=== PATIENT | female | born 1980 | race Caucasian/White ===

== ENCOUNTER 2017-01-02 23:49 | Inpatient (IN) | payer BC, MEDICAID ==
[~2017-01-02] VITALS: Ht 172.7 cm; Wt 81.6 kg
[~2017-01-02 23:49] MED LIST: CYCL-36 PO; FIORIC PO; KETO10 PO
[2017-01-03] VITALS (76 sets, daily range): BP systolic 90–127; BP diastolic 49–95; PULSE 66–108; RESP 16–20; TEMP 97.8–99.5; O2SAT 98–100
--- NOTE | 2017-01-03 00:32 | PD ---
HPI Chief Complaint LOF Date Seen: Jan 03, 2017 Time Seen: 00:15 Travel History International Travel<30 Days: No Contact w/Intl Traveler<30Days: No Known Affected Area: No History of Present Illness HPI 36y/o , IUP at 39.1 records reviewed and PNC complicated by: 1. AMA 2. h/o HPV 3. remote h/o chlamydia Patient presents c/o large gush of clear fluid at 10:45pm last night. She reports she continues to leak large amounts of fluid. She reports she had been having irregular ctx prior and has had some increase in the intensity of ctx since her water broke. She reports good FM. She denies any VB. She denies any aggravating factors and reports she had just gotten into bed when she felt the gush. She has no other complaints today. Para: 2 : 3 Miscarriage: 0 : 0 History Past Medical History Narrative Medical migraine CAUSEY shingles Obstetric History Obstetric History FT x2 h/o abnl PAP and chlamydia Past Surgical History Narrative Surgical Cholecystectomy LEEP Appendectomy Family History Narrative Family History HTN Social History Alcohol Use: No Tobacco Use: No Substance Abuse: No Allergies-Medications (Allergen,Severity, Reaction): Coded Allergies: Morphine (Verified Allergy, Severe, ITCHING, HEADACHE, NAUSEA, 11/07/13) Home Meds Reported Medications Ketorolac Tromethamine (Toradol)10 Mg Tab10 Mg PO Q6 #20 TAB *DO NOT EXCEED 40 MG/DAY* *DURATION IS NOT TO EXCEED 5 DAYS* 11/08/13 Cyclobenzaprine Hcl (Flexeril)10 Mg Tab10 Mg PO Q8 PRN (MUSCLE SPASM) #20 TAB 11/08/13 Acetamin/Butalbital/Caffeine (Fioricet Tab)1 Tab Tab1 Tab PO Q6H PRN (HEADACHE) 11/07/13 Review of Systems Except as stated in HPI: all other systems reviewed are Neg Physical Exam VSS AF Narrative GENERAL: Well-nourished, well-developed patient. SKIN: Warm and dry. HEAD: Normocephalic and atraumatic. EYES: No scleral icterus. No injection or drainage. ENT: No nasal drainage noted. Mucous membranes pink. Airway patent. NECK: Supple, trachea midline. No JVD. CARDIOVASCULAR: Regular rate and rhythm without murmurs, gallops, or rubs. RESPIRATORY: Breath sounds equal bilaterally. No accessory muscle use. BREASTS: Bilateral exam showed no masses , no retractions, no nipple discharge. ABDOMEN/GI: Abdomen soft, non-tender, bowel sounds present, no rebound, no guarding Gravid Fundal Height: appropriate for gestational age GENITOURINARY: External Genitalia: intact and normal in appearance BUS glands: [nl] Cervix: [no cervical/vaginal masses noted Dilatation: [2] Effacement: [50] Station: [-2 to -3] Presentation: [cephalic], confirmed by limited bedside US Membranes: [grossly ruptured] Uterine Contractions: [irregular ctx pattern] FHT's: Category: [1] Baseline: [120s] Reactive: [yes] Variability: [moderate] Decels: [-] EXTREMITIES: No cyanosis or edema. BACK: Nontender without obvious deformity. No CVA tenderness. NEUROLOGICAL: Awake and alert. Motor and sensory grossly within normal limits. Five out of 5 muscle strength in all muscle groups. Normal speech. SKIN: warm/dry, no rashes noted Data Data Vital Signs Reviewed: Yes [facility] Medical Record Reviewed: Yes Plan A/P: 36y/o 1. IUP at 39.1 2. PROM: patient with grossly ruptured membranes, some ctx noted, expressed interest to enter labor spontaneously, will admit to primary OB 3. GBS neg 4. wellbeing: reassuring testing, continue EFM 5. h/o migraine CAUSEY 6. h/o shingles Diagnosis Diagnosis: Primary Impression: Premature rupture of membranes Condition: Marguerite Carmona MD Jan 03, 2017 00:32
[2017-01-03] MEDS ORDERED: PRENTAB85 PO (00:38)
[2017-01-03] MEDS ORDERED: LACTATED RINGER'S 1000 ML INJ 1,000 ML IV SCH (00:43)
[2017-01-03] MEDS ORDERED: LACTATED RINGER'S 1000 ML INJ 1,000 ML IV PRN (00:43)
[2017-01-03] MEDS ORDERED: LIDOCAINE HCL 1% 50 ML VIAL I-DERMAL PRN (00:45)
[2017-01-03] MEDS ORDERED: CITRIC ACID-SODIUM CITRATE LIQ 30 ML UDC PO SCH (00:45)
[2017-01-03] MEDS ORDERED: OXYTOCIN 30 UNITS-500ML PREMIX 500 ML IV ONE ×2 (00:45→19:30)
[2017-01-03] MEDS ORDERED: LIDOCAINE HCL 1% 50 ML VIAL INFIL PRN (00:45)
[2017-01-03] MEDS ORDERED: MINERAL OIL 10 ML VIAL TOPICAL PRN (00:45)
[2017-01-03] MEDS ORDERED: SODIUM CHLORID 0.9% 500 ML INJ 500 ML IV PRN (00:45)
[2017-01-03] MEDS ORDERED: SODIUM CHLOR 0.9% 1000 ML INJ 1,000 ML IV PRN (01:03)
[2017-01-03] MEDS ORDERED: OXYTOCIN 30 UNITS-500ML PREMIX 500 ML IV SCH (01:15)
[2017-01-03 01:46] LABS: BLOOD, URINE NEG (NEG); GLUCOSE,URINE NEG (NEG); KETONE, URINE NEG (NEG); NITRITE,URINE NEG (NEG); PH, URINE 6.5 (5.0-8.5); SQUAMOUS EPITHELIAL CELL URINE 4 /hpf (0-5); URINE COLOR LIGHT-YELLOW (YELLW/STRAW)
[2017-01-03 01:48] LABS: COMMENT (UR) CULT NOT INDICATED; CULTURE IF INDICATED CULT NOT INDICATED
[2017-01-03 03:26] LABS: AUTOMATED NEUTROPHIL # 8.7 TH/MM3 (1.8-7.7); BASOPHIL # 0.1 TH/MM3 (0-0.2); BASOPHIL % 0.4 % (0.0-2.0); EOSINOPHIL # 0.1 TH/MM3 (0-0.4); EOSINOPHIL % 1.2 % (0.0-4.0); HEMATOCRIT 33.2 % (35.0-46.0); HEMO FLAGS DIFF FINAL; LYMPHOCYTE # 1.6 TH/MM3 (1.0-4.8); MEAN CELL VOLUME 91.8 FL (80.0-100.0); MEAN CORPUSCULAR HEMOGLOBIN 29.8 PG (27.0-34.0); MEAN CORPUSCULAR HGB CONC 32.5 % (32.0-36.0); MONO % 6.7 % (0.0-8.0); NEUT % 77.7 % (16.0-70.0); PLATELET COUNT 155 TH/MM3 (150-450); RED BLOOD COUNT 3.62 MIL/MM3 (4.00-5.30); RED CELL DISTRIBUTION WIDTH 13.7 % (11.6-17.2); WHITE BLOOD COUNT 11.2 TH/MM3 (4.0-11.0)
[2017-01-03] MEDS ORDERED: OXYTOCIN 30 UNITS/NS 500ML PREMIX IV SCH ×2 (09:15→09:30)
--- NOTE | 2017-01-03 10:12 | PD.LABORPN ---
Subjective Subjective pt finally agreed to start pitocin, now feeling more ctxs Objective Vital Signs Vital Signs Date Time Temp Pulse Resp B/P Pulse Ox O2 Delivery O2 Flow Rate FiO2 01/03/17 09:43 86 127/89 01/03/17 09:19 75 116/76 01/03/17 09:18 98.6 01/03/17 09:15 78 01/03/17 09:10 78 01/03/17 09:05 71 01/03/17 09:00 72 01/03/17 08:55 81 01/03/17 08:50 76 01/03/17 08:45 78 01/03/17 08:40 73 01/03/17 08:35 71 01/03/17 08:30 74 01/03/17 08:10 85 01/03/17 08:00 80 01/03/17 07:55 79 01/03/17 07:50 79 01/03/17 07:15 82 119/73 01/03/17 07:14 98.5 01/03/17 07:14 80 118/82 01/03/17 07:00 98.3 18 01/03/17 06:57 76 118/79 01/03/17 04:00 72 18 120/82 01/03/17 04:00 97.8 Objective Pelvic Exam: Cervix:4/80/-3 Dilatation: [-] Effacement: [-] Station: [-] Presentation: [-] Membranes: [intact or ruptured] Uterine Contractions: irregular FHT's: Category: [-] Baseline: 140's reactive Reactive: [-] Variability: [-] Decels: [-] Assessment/Plan Assessment and Plan 36 yo at 39+ wks with SROM at 11 pm last evening, latent labor 1. pitocin augmentation 2. pain management 3. expectant management Gay Goldsmith MD Jan 03, 2017 10:12
[2017-01-03] MEDS ORDERED: fentaNYL 2MCG-BUPIV 0.125% INJ 100 ML ONE (16:06)
[2017-01-03] MEDS ORDERED: ePHEDrine/NS 25 MG/5 ML SYR ONE (16:07)
[2017-01-03] MEDS ORDERED: OXYTOCIN 10 UNIT/ML AMP ONE (18:45)
[2017-01-03] MEDS ORDERED: EPIDURAL-DO NOT ADMINISTER ANTICOAGULANTS PRN (19:00)
[2017-01-03] MEDS ORDERED: EPIDURAL-NALOXONE HCL 0.4 MG/ML AMP IV PRN (19:00)
[2017-01-03] MEDS ORDERED: EPIDURAL-DIPHENHYDRAMINE HCL 50 MG CAP PO PRN (19:00)
[2017-01-03] MEDS ORDERED: EPIDURAL-NO SYSTEMIC NARCOTICS PRN (19:00)
[2017-01-03] MEDS ORDERED: EPIDURAL-DIPHENHYDRAMINE HCL 50 MG/ML VIAL IV PUSH PRN (19:00)
[2017-01-03] MEDS ORDERED: MORPHINE SULFATE PF 5 MG/10 ML VIAL ONE (19:23)
[2017-01-03] MEDS ORDERED: KETOROLAC TROMETHAMINE 60 MG/2 ML (IM) VIAL IM PRN ×2 (19:30)
[2017-01-03] MEDS ORDERED: ONDANSETRON HCL 4 MG/2 ML VIAL IV PUSH PRN (19:30)
[2017-01-03] MEDS ORDERED: SODIUM CHLORIDE 0.9% FLUSH 10 ML FLUSH IV FLUSH PRN (19:30)
[2017-01-03] MEDS ORDERED: SIMETHICONE 80 MG CHEWABLE TAB PO PRN (19:30)
[2017-01-03] MEDS ORDERED: oxyCODONE/ACETAMINOPHEN 5 MG/325 MG TAB PO PRN (19:30)
[2017-01-03] MEDS ORDERED: MEPERIDINE HCL 25 MG/ML VIAL ONE (19:34)
[2017-01-03] MEDS ORDERED: LACTATED RINGER'S 1000 ML INJ 1,000 ML IV ONE (20:17)
[2017-01-03] MEDS ORDERED: METOCLOPRAMIDE HCL 10 MG/2 ML VIAL IV ONE (20:17)
[2017-01-03] MEDS ORDERED: DEXAMETHASONE SOD PHOS 4 MG/ML VIAL IV ONE (20:17)
[2017-01-03] MEDS ORDERED: ONDANSETRON HCL 4 MG/2 ML VIAL IV PUSH ONE (20:17)
[2017-01-03] MEDS ORDERED: OXYTOCIN 30 UNITS-500ML PREMIX 500 ML ONE (20:44)
[2017-01-03] MEDS ORDERED: SODIUM CHLORIDE 0.9% FLUSH 10 ML FLUSH IV FLUSH SCH (21:00)
[2017-01-03] MEDS ORDERED: MEPERIDINE HCL 25 MG/ML VIAL IV SCH (22:00)
[2017-01-03] MEDS ORDERED: MEPERIDINE HCL 25 MG/ML VIAL IV PRN (22:20)
[2017-01-04] VITALS (10 sets, daily range): BP systolic 97–120; BP diastolic 67–78; PULSE 70–83; RESP 16–18; TEMP 98.1–98.4; O2SAT 98
[2017-01-04] MEDS ORDERED: LACTATED RINGER'S 1000 ML INJ 1,000 ML IV SCH (00:16)
[2017-01-04] MEDS ORDERED: diphenhydrAMINE HCL 50 MG/ML VIAL ONE (01:44)
[2017-01-04] MEDS: IBUPROFEN 600 MG TAB PO PRN ×4 (05:03→23:03)
[2017-01-04] MEDS ORDERED: OXYTOCIN 30 UNITS-500ML PREMIX 500 ML IV PRN (05:30)
[2017-01-04] MEDS: oxyCODONE/ACETAMINOPHEN 5 MG/325 MG TAB PO PRN ×4 (06:15→23:03)
[2017-01-04 06:54] LABS: AUTOMATED NEUTROPHIL # 11.8 TH/MM3 (1.8-7.7); BASOPHIL % 0.1 % (0.0-2.0); EOSINOPHIL % 0.2 % (0.0-4.0); HEMATOCRIT 27.3 % (35.0-46.0); HEMO FLAGS DIFF FINAL; LYMPH % 6.7 % (9.0-44.0); LYMPHOCYTE # 0.9 TH/MM3 (1.0-4.8); MEAN CELL VOLUME 91.8 FL (80.0-100.0); MEAN CORPUSCULAR HEMOGLOBIN 30.2 PG (27.0-34.0); MEAN CORPUSCULAR HGB CONC 32.8 % (32.0-36.0); MONO % 6.1 % (0.0-8.0); NEUT % 86.9 % (16.0-70.0); PLATELET COUNT 134 TH/MM3 (150-450); RED BLOOD COUNT 2.98 MIL/MM3 (4.00-5.30); RED CELL DISTRIBUTION WIDTH 13.6 % (11.6-17.2); WHITE BLOOD COUNT 13.5 TH/MM3 (4.0-11.0)
[2017-01-04] MEDS ORDERED: MEASLES, MUMPS, RUBELLA VACCINE 0.5 ML VIAL SQ ONE (16:00)
[2017-01-04] MEDS ORDERED: DIPHTH/TETANUS/ACEL PERTUSSIS (BOOSTER) 0.5 ML VIAL/PFS IM ONE (16:00)
--- NOTE | 2017-01-04 16:25 | PD.LABORPN ---
Subjective Subjective Late entry- called to see pt by nursing due to a change in exam..now 5 cm but nursing now suspecting a face presentation with the mentum anterior...530 pm 01/03 Pt co being tired and having pelvic pressure. Objective Vital Signs Vital Signs Date Time Temp Pulse Resp B/P Pulse Ox O2 Delivery O2 Flow Rate FiO2 01/04/17 14:40 108/71 01/04/17 14:40 98.4 80 16 01/04/17 13:59 18 01/04/17 13:40 18 01/04/17 11:55 16 01/04/17 09:50 97/67 01/04/17 09:50 98.3 80 18 01/04/17 09:00 16 Objective Pelvic Exam: Cervix: complete/ face presentation with mentum posterior Dilatation: [-] Effacement: [-] Station: [-] Presentation: [-] Membranes: [intact or ruptured] Uterine Contractions: [-] FHT's: Category: [-] Baseline: [-] Reactive: [-] Variability: [-] Decels: [-] Assessment/Plan Assessment and Plan IUP at 39+ wks with face presentation mentum posterior 1. discussed situation with pt and and the fact that this type of presentation not amenable to vaginal delivery due to the hyperextension of the neck...they understood and a c/s was called to perform. Gay Goldsmith MD Jan 04, 2017 16:25
--- NOTE | 2017-01-04 16:27 | HHI.OB ---
Subjective Post Operative Day: 1 Remarks Pt doing well, ambulating well, tolerating regular diet, good pain control Objective Vitals/I&O Vital Signs Date Time Temp Pulse Resp B/P Pulse Ox O2 Delivery O2 Flow Rate FiO2 01/04/17 14:40 108/71 01/04/17 14:40 98.4 80 16 01/04/17 13:59 18 01/04/17 13:40 18 01/04/17 11:55 16 01/04/17 09:50 97/67 01/04/17 09:50 98.3 80 18 01/04/17 09:00 16 01/04/17 07:00 16 01/04/17 01:15 98.3 18 98 01/04/17 01:15 70 112/72 01/03/17 22:00 18 98 01/03/17 22:00 99.3 01/03/17 22:00 68 108/69 01/03/17 20:50 98.6 01/03/17 20:48 91 20 100 01/03/17 20:48 111/68 01/03/17 20:29 106/63 01/03/17 20:29 80 18 100 01/03/17 20:15 99.5 99 01/03/17 20:15 73 18 107/62 01/03/17 19:59 76 18 90/51 100 01/03/17 19:50 76 18 92/55 100 01/03/17 19:32 91/49 01/03/17 19:32 84 18 100 01/03/17 19:20 99.3 01/03/17 19:20 98 18 104/52 100 01/03/17 18:15 78 01/03/17 18:10 77 01/03/17 18:05 77 01/03/17 18:00 75 01/03/17 17:55 72 01/03/17 17:55 72 113/71 01/03/17 17:50 67 01/03/17 17:50 66 113/72 01/03/17 17:45 76 114/73 01/03/17 17:45 69 01/03/17 17:40 104 01/03/17 17:40 112/82 01/03/17 17:40 108 01/03/17 17:36 98 105/63 01/03/17 17:35 77 01/03/17 17:30 72 103/65 01/03/17 17:30 69 01/03/17 17:26 86 94/59 01/03/17 17:25 108 01/03/17 17:20 87 112/70 01/03/17 17:20 100 01/03/17 17:15 75 01/03/17 17:15 74 114/71 01/03/17 17:10 74 01/03/17 17:10 73 107/69 01/03/17 17:05 71 01/03/17 17:05 73 115/72 01/03/17 17:00 80 117/78 01/03/17 17:00 79 01/03/17 16:55 72 01/03/17 16:55 74 119/73 01/03/17 16:51 74 109/95 01/03/17 16:50 77 01/03/17 16:45 71 01/03/17 16:45 78 118/75 01/03/17 16:40 85 115/72 01/03/17 16:40 72 01/03/17 16:35 79 113/72 01/03/17 16:35 76 01/03/17 16:32 76 112/68 01/03/17 16:30 85 94/76 01/03/17 16:30 81 Result Diagram: 01/04/17 0622 Objective Remarks GENERAL: Well-nourished, well-developed patient. CARDIOVASCULAR: Regular rate and rhythm without murmurs, gallops, or rubs. RESPIRATORY: Breath sounds equal bilaterally. No accessory muscle use. ABDOMEN/GI: Abdomen soft, non-tender, bowel sounds present. Incision: Clean, dry and intact. Fundus: Firm, non-tender at umbilicus. GENITOURINARY: Light to moderate bleeding. EXTREMITIES: No cyanosis or edema, non-tender, without signs of DVT. Medications and IVs Current Medications Medications (Trade) Dose Ordered Sig/Sejal Route Start Time Stop Time Status Last Admin Lactated Ringer's 1,000 ml @ 125 mls/hr Q8H IV 01/03/17 00:43 01/03/17 00:43 Lactated Ringer's 1,000 ml @ 3,000 mls/hr Q20M PRN IV 01/03/17 00:43 (NS 1000 ml Inj) 1,000 ml @ 100 mls/hr Q10H PRN IV 01/03/17 01:03 (fentaNYL INJ) 50 mcg Q1H PRN IV PUSH 01/03/17 00:45 01/03/17 12:30 (fentaNYL INJ) 100 mcg Q1H PRN IV PUSH 01/03/17 00:45 Mineral Oil 10 ml 10 ml UNSCH PRN TOPICAL 01/03/17 00:45 Oxytocin 500 ml @ 0 mls/hr TITRATE IV 01/03/17 09:30 (Lr 1000 ml Inj) 1,000 ml @ 100 mls/hr Q10H IV 01/04/17 00:16 01/04/17 20:15 01/04/17 01:30 (NS Flush) 2 ml BID IV FLUSH 01/03/17 21:00 (NS Flush) 2 ml UNSCH PRN IV FLUSH 01/03/17 19:30 (Mylicon Chew) 80 mg QID PRN PO 01/03/17 19:30 (Motrin) 600 mg Q6H PRN PO 01/03/17 19:30 01/04/17 10:54 (Toradol Inj) 30 mg Q6H PRN IM 01/03/17 19:30 01/04/17 19:29 (Percocet 5-325 Mg) 1 tab Q4H PRN PO 01/03/17 19:30 01/04/17 10:54 (Percocet 5-325 Mg) 2 tab Q4H PRN PO 01/03/17 19:30 (Zofran Inj) 4 mg Q6H PRN IV PUSH 01/03/17 19:30 Miscellaneous Information NO SYSTEMIC NARCOTICS TO BE GIVEN FO... UNSCH PRN .XX 01/03/17 19:00 01/04/17 18:59 (Narcan Inj) 0.4 mg UNSCH PRN IV 01/03/17 19:00 01/04/17 18:59 (Benadryl Inj) 25 mg Q6H PRN IV PUSH 01/03/17 19:00 01/04/17 18:59 01/04/17 02:10 (Benadryl) 50 mg Q6H PRN PO 01/03/17 19:00 01/04/17 18:59 Miscellaneous Information ALL NURSING DEPARTMENTS UNSCH PRN .XX 01/03/17 19:00 01/04/17 18:59 Assessment/Plan Assessment and Plan POD # 1 s/p c/s due to face presentation mentum posterior 1. doing well Gay Goldsmith MD Jan 04, 2017 16:27
[2017-01-05] MEDS: IBUPROFEN 600 MG TAB PO PRN ×2 (06:26→13:27)
[2017-01-05 08:00] VITALS: BP 131/68; PULSE 77; RESP 16; TEMP 97.8
--- NOTE | 2017-01-05 08:38 | HHI.DCPOC ---
Discharge Care Plan Diagnosis: (1) delivery delivered Report Symptoms to Your Doctor -Temperature above 100.5 degrees -Redness, of incision or excessive or foul smelling drainage -Unusual pain or calf pain -Increased vaginal bleeding -Painful or difficulty urinating -Feelings of extreme sadness or anxiety after 2 weeks Goals to Promote Your Health * To prevent worsening of your condition and complications * To maintain your health at the optimal level Directions to Meet Your Goals Take your medications as prescribed Follow your dietary instruction Follow activity as directed Ensure plenty of rest for recovery Drink fluids for hydration Keep your appointments as scheduled Take your immunizations and boosters as scheduled If your symptoms worsen call your PCP, if no PCP go to Urgent Care Center or Emergency Room Smoking is Dangerous to Your Health. Avoid second hand smoke Call the 24-hour crisis hotline for domestic abuse at Adama Chacko MD Jan 05, 2017 08:37
[2017-01-05] MEDS ORDERED: HYDR2.5%T RECTAL (08:40)
[2017-01-05] MEDS ORDERED: OXYC1TAB63 PO (08:40)
--- NOTE | 2017-01-05 08:43 | HHI.DS ---
Admission Date Jan 03, 2017 at 00:25 Discharge Date: Jan 05, 2017 Admitting Diagnosis Diagnosis: (1) delivery delivered Diagnosis: Principal : Primary Reason: face presentation : Male, Single Brief History 36y/o , IUP at 39.1 records reviewed and PNC complicated by: 1. AMA 2. h/o HPV 3. remote h/o chlamydia Patient presents c/o large gush of clear fluid at 10:45pm last night. She reports she continues to leak large amounts of fluid. She reports she had been having irregular ctx prior and has had some increase in the intensity of ctx since her water broke. She reports good FM. She denies any VB. She denies any aggravating factors and reports she had just gotten into bed when she felt the gush. She has no other complaints today. Hospital Course patient came in labor and ended with CS for face presentation without delivery Pt Condition on Discharge: Good Discharge Disposition: Discharge Home Discharge Instructions Diet Instructions: As Tolerated, No Restrictions Activities You Can Perform: Pelvic Rest Activities to Avoid: Driving for 24 hrs Follow up Referrals: ASSESSMENT NURSE - 2 Weeks @ [facility] with Adama Chacko MD New Medications: Hydrocortisone Rectal (Anusol-Hc Rectal) 2.5% Cream 1 APPLIC RECTAL Q6H PRN ITCHING/INFLAMMATION #30 Ref 0 GM Oxycodone-Acetaminophen (Oxycodone-Acetaminophen) 5-325 mg Tab 1 TAB PO Q4H PRN PAIN SCALE 3 TO 5 #30 TAB Continued Medications: Vit W/ Ferrous Fumara (Pnv Plus Multivi 27-1 mg) 1 Tab Tab 1 TAB PO DAILY Adama Chacko MD Jan 05, 2017 08:43
--- NOTE | 2017-01-05 08:44 | HHI.OB ---
Subjective Post Day: 2 Remarks doing well Objective Vitals/I&O Vital Signs Date Time Temp Pulse Resp B/P Pulse Ox O2 Delivery O2 Flow Rate FiO2 01/04/17 20:30 98.1 83 18 01/04/17 20:30 120/78 01/04/17 17:00 17 01/04/17 14:40 108/71 01/04/17 14:40 98.4 80 16 01/04/17 13:59 18 01/04/17 13:40 18 01/04/17 11:55 16 01/04/17 09:50 97/67 01/04/17 09:50 98.3 80 18 01/04/17 09:00 16 Objective Remarks GENERAL: Well-nourished, well-developed patient. ABDOMEN/GI: Abdomen soft, non-tender. Fundus: Firm, non-tender at umbilicus. GENITOURINARY: Light to moderate bleeding. EXTREMITIES: No cyanosis or edema, non-tender, without signs of DVT. Medications and IVs Current Medications Medications (Trade) Dose Ordered Sig/Sejal Route Start Time Stop Time Status Last Admin Lactated Ringer's 1,000 ml @ 125 mls/hr Q8H IV 01/03/17 00:43 01/03/17 00:43 Lactated Ringer's 1,000 ml @ 3,000 mls/hr Q20M PRN IV 01/03/17 00:43 (NS 1000 ml Inj) 1,000 ml @ 100 mls/hr Q10H PRN IV 01/03/17 01:03 (fentaNYL INJ) 50 mcg Q1H PRN IV PUSH 01/03/17 00:45 01/03/17 12:30 (fentaNYL INJ) 100 mcg Q1H PRN IV PUSH 01/03/17 00:45 Mineral Oil 10 ml 10 ml UNSCH PRN TOPICAL 01/03/17 00:45 (Pitocin 30 Units-NS 500 ml Premix) 500 ml @ 0 mls/hr TITRATE IV 01/03/17 09:30 (NS Flush) 2 ml BID IV FLUSH 01/03/17 21:00 (NS Flush) 2 ml UNSCH PRN IV FLUSH 01/03/17 19:30 (Mylicon Chew) 80 mg QID PRN PO 01/03/17 19:30 (Motrin) 600 mg Q6H PRN PO 01/03/17 19:30 01/05/17 06:26 (Percocet 5-325 Mg) 1 tab Q4H PRN PO 01/03/17 19:30 01/04/17 23:03 (Percocet 5-325 Mg) 2 tab Q4H PRN PO 01/03/17 19:30 (Zofran Inj) 4 mg Q6H PRN IV PUSH 01/03/17 19:30 Assessment/Plan Assessment and Plan POD # 2 s/p c/s due to face presentation mentum posterior DC home today Adama Chacko MD Jan 05, 2017 08:44
[2017-01-05] MEDS: oxyCODONE/ACETAMINOPHEN 5 MG/325 MG TAB PO PRN ×2 (09:17→13:27)
--- NOTE | 2017-01-05 14:53 | MP ---
cc: MIHIR ARNOLD M.D. DATE OF SURGERY: 01/03/2017 PREOPERATIVE DIAGNOSIS Intrauterine at 39+ weeks gestation with a face presentation with mentum posterior. POSTOPERATIVE DIAGNOSIS Intrauterine at 39+ weeks gestation with a face presentation with mentum posterior. PROCEDURE PERFORMED Primary low transverse section. OPERATING SURGEON Dr. Mihir Arnold. ANESTHESIA Epidural. FINDINGS IN SURGERY Included omentum posterior, face presentation, a viable male. Apgars 9 and 9, weighing 7 pounds 3 ounces. Normal tubes and ovaries bilaterally. BLOOD LOSS 800 ccs. COMPLICATIONS None. PROCEDURE IN DETAIL Proper consents were obtained, blood had been type and screened. The patient was taken to the operating room where an adequate level of epidural anesthesia was achieved. She was then sterilely prepped and draped. A Francis catheter had already been placed. At this time using a sharp knife, a Pfannenstiel skin incision was performed. This was carried down to the fascia using Bovie cautery. Fascia was nicked in the midline and extended superior laterally on each side, we then have blunt dissection of the muscle bellies off of the fascia. Peritoneum was identified, grasped between hemostats and entered sharply with Metzenbaum scissors. This incision was extended superiorly inferiorly paying close attention to the bladder. Bladder blade was placed. Bladder flap was developed. Bladder blade was replaced. Transverse incision was made in the lower uterine segment. This was extended using the finger fracture technique. Rupture of membranes had already been performed. It was controlled delivery of the vertex after I flexed the head with bulb suction to the oropharynx and nares. No nuchal cord noted. Delivery of the body followed. We had delayed cord clamping to 45 seconds. We then clamped the cord with two Christine clamps, cut in between and the was handed to the team in attendance, a viable male, 7 pounds, 3 ounces, Apgars 9 and 9. At this time cord blood was obtained. Placenta was removed. The uterus was exteriorized and wiped clean of clots and debris. The uterine incision was closed with a #1 Chromic suture starting at each apex and meeting in midline in a running interlocking fashion. Excellent hemostasis was noted. Irrigation was performed of the abdominopelvic cavity, uterus was placed back into it. Hemostasis was assured. Reapproximation of the muscles using #1 Chromic suture x1. We then closed the fascia using 0 Vicryl starting at each apex and meeting in the midline in a running fashion. Irrigation was performed of the subcu. Hemostasis was achieved with the Bovie cautery. I closed the space using interrupted sutures of 3-0 Vicryl. We then went ahead and closed the skin using jaspreet. All sponge, lap and needle counts were correct x3. MD TRACEY Barrera/TLL /1:37 PM /2:43 PM
== END 2017-01-05 13:30 | disposition home or self-care (01) | DRG 766 ==
LOC: HOBED 23:49 → H2EB 01-03 00:25 → H1EA 01-03 21:21
PROVIDERS: ADMIT Obstetrics & Gynecology; ATTEND Obstetrics & Gynecology
PROC: 10D00Z1 Extraction of Products of Conception, Low, Open Approach (ICD-10-PCS; principal; 2017-01-03)
DX: O42.92 Full-term premature rupture of membranes, unspecified as to length of time between rupture and onset of labor (principal); O32.3XX0 Maternal care for face, brow and chin presentation, not applicable or unspecified; Z37.0 Single live birth; Z3A.39 39 weeks gestation of pregnancy
CPT/HCPCS: 81001; 85025; 90715; 99285; J0690; J1100; J1200; J2175; J2274; J2405; J2590; J2765; J3010; J7120